=== PATIENT | female | born 1980 | race Caucasian/White ===

== ENCOUNTER 2021-11-26 09:53 | Emergency (ER) | payer SELFPAY ==
[2021-11-26 10:14] VITALS: BP 197/105; PULSE 78; RESP 16; TEMP 36.7; O2SAT 95; BMI 26.6
--- NOTE | 2021-11-26 10:29 | CT_ITS ---
WS: [id number] CT HEAD TECHNIQUE: Noncontrast CT of the head obtained from the skullbase to the vertex. CLINICAL INFORMATION: headache on left periorbital region COMPARISON: 2012 DLP: 972.[address] scans at [facility] use at least one of these dose optimization techniques: automated e xposure control; mA and/or kV adjustment per patient size (includes targeted exams where dose is matc hed to clinical indication); or iterative reconstruction. FINDINGS: No evidence of intracranial hemorrhage or mass effect. Ventricular system and basal cisterns are fisher nt. Mild small vessel changes with moderate parenchymal volume loss. Chronic lacunar infarcts in the RIGHT greater than LEFT caudate and LEFT greater than RIGHT basal ganglia. Chronic lacunar infarcts i n the LEFT thalamus. Embolization coils supraclinoid LEFT ICA from previous.. No extra-axial fluid co llections. No evidence of mass or mass effect. Paranasal sinuses and mastoid air cells are well aerated. .Normal visualized soft tissues. CT/CT head wo con* [id number] IMPRESSION: 1. No evidence of intracranial hemorrhage or mass effect. 2. Mild small vessel changes. Moderate parenchymal volume loss. 3. Multiple chronic lacunar infarcts in the caudate, basal ganglia, thalamus. 4. Embolization coils LEFT supraclinoid ICA new from previous. 5. No acute intracranial findings.
--- NOTE | 2021-11-26 10:30 | W.ED.HA ---
Documented by User: TIERA Alvarado 11/26/21 14:15 HPI - Headache General: Chief Complaint: Headache Stated Complaint: head pain Time Seen by Provider: 11/26/21 09:56 History of Present Illness: Patient is a 41-year-old female comes to the ED with headache. History of brain aneurysm, but is not on any current blood thinners. Patient has had this headache for 5 days. Pain is localized to left side of face just lateral to left eye. She says it is a sharp pain and touching her left side of face near her eye causes pain. Denies any other neurological symptoms such as vision changes, numbness tingling or weakness to 1 side of her face or body. She does not have a history of migraines. [id number] medications have not helped headache. She currently rates the headache a 9 out of 10. Associated symptoms: Deny chest pain, fever(s), nausea, rash or vomiting Review of Systems Const: Denies: fever(s), chills or fatigue Eyes: Denies: change in vision or eye discomfort ENMT: Denies: throat pain, odynophagia, nasal discharge or nasal congestion Card: Denies: chest pain, palpitations, edema, swelling of feet/ankles, dyspnea on exertion or orthopnea Resp: Denies: dyspnea, productive cough or non-productive cough GI: Denies: abdominal pain, nausea, vomiting, diarrhea, constipation or hematochezia : Denies: flank pain, dysuria or hematuria Musc: Denies: neck pain, back pain or extremity swelling Skin/Breast: Denies: rash or new lesions Neuro: Reports: headache(s); Denies: numbness in extremities or weakness in extremities PFS ED PFSH: Medical History Brain aneurysm No pertinent family history Female Reproductive History: Date of last menstrual period: 10/30/21 Physical Exam Const: COMMON NORMALS: patient oriented x3, healthy appearing and alert GENERAL APPEARANCE: cooperative and comfortable HENMT: COMMON NORMALS: normocephalic HEAD & SCALP: normocephalic FACE & SINUS: Facial tenderness on exam of face and sinuses on the left periorbital (Just lateral to left periorbital) MOUTH: Normal oral and palatal mucosa present THROAT: posterior oropharynx normal and uvula midline Eye: COMMON NORMALS: Equal, round and reactive pupils present, EOMs intact bilaterally and conjunctivae normal CONJUNCTIVA: Yes conjunctivae normal PUPIL: Yes Equal, round and reactive pupils present Neck/C-Spine: COMMON NORMALS: supple GENERAL: Yes normal visual inspection Resp: COMMON NORMALS: normal respiratory effort, No retractions, No use of accessory muscles and clear to auscultation bilaterally AUSCULTATION: clear to auscultation bilaterally Cardio: COMMON NORMALS: regular rate, regular rhythm, S1 normal heart sound present, S2 normal heart sound present, No gallops present (Cardio), No clicks present (Cardio), No murmurs present (Cardio) and Peripheral pulses 2+ throughout RATE: regular rate RHYTHM: regular rhythm HEART SOUNDS: S1 normal heart sound present and S2 normal heart sound present PERIPHERAL PULSES: Peripheral pulses 2+ throughout GI: COMMON NORMALS: Normal to inspection, nondistended, normoactive bowel sounds present, Soft to palpation, non-tender and no masses PALPATION: Yes Soft to palpation : COMMON NORMALS: Yes no CVA tenderness BLADDER/KIDNEY EXAM: Yes no CVA tenderness Back/Pelvis: COMMON NORMALS: no CVA tenderness Extremity: COMMON NORMALS: normal to inspection and no pedal edema Neuro: COMMON NORMALS: patient oriented x3, CN's II-XII intact bilaterally, moves all extremities, no focal motor deficits and no sensory deficits noted SENSORIUM/ORIENTATION: Yes alert SPEECH: speech normal SENSORY EXAM: Yes extremities (intact) MOTOR EXAM: 5/5 motor strength present throughout OTHER: Patient has tenderness in the maxillary region of left trigeminal nerve. Skin: GENERAL SKIN EXAM: dry skin Course Vital Signs: Vital signs: Vital Signs Temperature 98.1 F 11/26/21 10:14 Pulse Rate 78 11/26/21 10:14 Respiratory Rate 16 11/26/21 10:14 Blood Pressure 197/105 11/26/21 10:14 Pulse Oximetry 95 11/26/21 10:14 [facility] - Headache Medical Decision Making Patient is a 41-year-old female comes to the ED with a headache. She describes the headache as a localized pain on the left side of her face just lateral to her left eye. It is tender to the touch. Symptoms started approximately 5 days ago. Denies any neuro symptoms. Vitals are stable. Neuro exam is benign. She does have tenderness over maxillary branch of trigeminal nerve on the left side. Rest of exam is benign. CT head showed no acute findings. Patient given Toradol and Decadron while here in the ED to help with headache symptoms. Based off exam findings and clinical history patient likely has trigeminal neuralgia and was discharged home with a prescription for carbamazepine. I placed an order with case management for patient be referred to neurologist Dr. Ramirez for follow-up. Patient understood and agreed with plan. Lab Data Radiology Impressions Head CT 11/26/21 10:29 IMPRESSION: 1. No evidence of intracranial hemorrhage or mass effect. 2. Mild small vessel changes. Moderate parenchymal volume loss. 3. Multiple chronic lacunar infarcts in the caudate, basal ganglia, thalamus. 4. Embolization coils LEFT supraclinoid ICA new from previous. 5. No acute intracranial findings. Discharge Plan Discharge Patient Disposition: Home Clinical Impression: Trigeminal neuralgia of left side of face Condition: Stable Prescriptions: New carbamazepine 100 mg capsule, ER multiphase 12 hr 200 mg PO BID Qty: 60 0RF Rx Instructions: You can increase dose by 100mg q other day prn pain. Do not exceed 1200mg daily. prednisone 20 mg tablet 20 mg PO BID 3 Days Qty: 6 0RF No Action atorvastatin 20 mg tablet 20 mg PO QAM Tylenol Ex Str Rapid Release 500 mg Tablet 1,000 mg PO Q6H PRN (Reason: Pain) citalopram 20 mg tablet 20 mg PO QAM metoprolol tartrate 50 mg tablet 50 mg PO BID hydrochlorothiazide 12.5 mg tablet 12.5 mg PO QAM Discharge Orders: Discharge ED (Routine); Ordered 11/26/21 Ordered By: eRynaldo Zamorano Discharge Diet: Regular Discharge Activity: Increase activity as tolerated Patient Instructions: Trigeminal Neuralgia (ED) Activity Restrictions/Additional Instructions: Follow-up with medical provider as directed. health and safety manager regarding in the next several days set up an appointment with Dr. Ramirez neurologist for further evaluation of trigeminal neuralgia. You can start taking the first dose of prednisone tomorrow, but start taking carbamazepine today. You can increase the carbamazepine dose by 100 mg every other day as needed for pain. Do not exceed 1200 mg of carbamazepine daily. take medications as prescribed. Return to the ER or your medical provider if condition worsens. Please read and understand discharge instructions. Thank you for choosing [facility] for your healthcare needs today. Please realize this is an emergency room and that we are providing you with a medical screening exam and this may not be complete and all inclusive of all the testing and or work up that you may need to determine your ailment or severity of your illness. It is very important that you follow up as instructed or that you return to the Emergency Department should you have concerns or if your condition changes or worsens in any way. Coding Level of Care Code ED Assistant Professor Of History for Chg Fwd Exam Comprehensive Documented by User: Dillan Schafer DO 11/27/21 05:58 HPI - Headache General: Chief Complaint: Headache Stated Complaint: head pain Time Seen by Provider: 11/26/21 09:56 PFS ED PFSH: Medical History Brain aneurysm No pertinent family history Course Vital Signs: Vital signs: Vital Signs Temperature 98.1 F 11/26/21 10:14 Pulse Rate 78 11/26/21 10:14 Respiratory Rate 16 11/26/21 10:14 Blood Pressure 197/105 11/26/21 10:14 Pulse Oximetry 95 11/26/21 10:14 MDM - Headache Medical Decision Making Patient is a 41-year-old female comes to the ED with a headache. She describes the headache as a localized pain on the left side of her face just lateral to her left eye. It is tender to the touch. Symptoms started approximately 5 days ago. Denies any neuro symptoms. Vitals are stable. Neuro exam is benign. She does have tenderness over maxillary branch of trigeminal nerve on the left side. Rest of exam is benign. CT head showed no acute findings. Patient given Toradol and Decadron while here in the ED to help with headache symptoms. Based off exam findings and clinical history patient likely has trigeminal neuralgia and was discharged home with a prescription for carbamazepine. I placed an order with case management for patient be referred to neurologist Dr. Ramirez for follow-up. Patient understood and agreed with plan. Chart reviewed and patient discussed with midlevel. Agree with assessment and plan. Lab Data Radiology Impressions Head CT 11/26/21 10:29 IMPRESSION: 1. No evidence of intracranial hemorrhage or mass effect. 2. Mild small vessel changes. Moderate parenchymal volume loss. 3. Multiple chronic lacunar infarcts in the caudate, basal ganglia, thalamus. 4. Embolization coils LEFT supraclinoid ICA new from previous. 5. No acute intracranial findings. Discharge Plan Discharge Patient Disposition: Home Clinical Impression: Trigeminal neuralgia of left side of face Condition: Stable Prescriptions: New carbamazepine 100 mg capsule, ER multiphase 12 hr 200 mg PO BID Qty: 60 0RF Rx Instructions: You can increase dose by 100mg q other day prn pain. Do not exceed 1200mg daily. prednisone 20 mg tablet 20 mg PO BID 3 Days Qty: 6 0RF No Action atorvastatin 20 mg tablet 20 mg PO QAM Tylenol Ex Str Rapid Release 500 mg Tablet 1,000 mg PO Q6H PRN (Reason: Pain) citalopram 20 mg tablet 20 mg PO QAM metoprolol tartrate 50 mg tablet 50 mg PO BID hydrochlorothiazide 12.5 mg tablet 12.5 mg PO QAM Discharge Orders: Discharge ED (Routine); Ordered 11/26/21 Ordered By: Reynaldo Zamorano Discharge Diet: Regular Discharge Activity: Increase activity as tolerated Patient Instructions: Trigeminal Neuralgia (ED) Activity Restrictions/Additional Instructions: Follow-up with medical provider as directed. health and safety manager regarding in the next several days set up an appointment with Dr. Ramirez neurologist for further evaluation of trigeminal neuralgia. You can start taking the first dose of prednisone tomorrow, but start taking carbamazepine today. You can increase the carbamazepine dose by 100 mg every other day as needed for pain. Do not exceed 1200 mg of carbamazepine daily. take medications as prescribed. Return to the ER or your medical provider if condition worsens. Please read and understand discharge instructions. Thank you for choosing [facility] for your healthcare needs today. Please realize this is an emergency room and that we are providing you with a medical screening exam and this may not be complete and all inclusive of all the testing and or work up that you may need to determine your ailment or severity of your illness. It is very important that you follow up as instructed or that you return to the Emergency Department should you have concerns or if your condition changes or worsens in any way. Coding Level of Care Code ED Assistant Professor Of History for Mehdi Fwd Exam Comprehensive
[2021-11-26] MEDS: dexamethasone 10 mg/mL INJ IM (10:34)
[2021-11-26] MEDS: ketorolac 60 mg/2 mL INJ IM (10:35)
--- NOTE | 2021-11-26 11:19 | PC.PHAR ---
PT STATES SHE TAKES CARE OF HER OWN MEDICATIONS-PT STATES SHE IS SUPPOSE TO BE TAKING EUTHYROX 150MCG DAILY STATES SHE HASNT TAKEN SINCE JULY STATES SHE CANT AFFORD THE MEDICATION EXT MED HISTORY SHOWS LAST FILLED 07/14/21 30D/S-PT STATES SHE JUST RAN OUT OF HER LIPITOR 20MG EXT MED HISTORY SHOWS LAST FILLED 10/01/21 30D/S
--- NOTE | 2021-11-26 12:13 | DCPLANNER ---
Addendum entered by Vanesa Davis 01/09/22 12:44: it risk and assurance manager received the following message from the neurology clinic regarding follow up appointment: She called back and said that she does not have a way to pay for the appointment at this time. I provided information about the financial assistance application and counselors. She said that she does not know her schedule and will call back to make an appointment. Addendum entered by Vanesa Davis 01/09/22 09:08: it risk and assurance manager received the following message from the neurology clinic regarding follow up appointment: I attempted to reach her again at [phone]. The mailbox is full and not accepting messages at this time. On 11/28/21 @ 14:53 Tiffanie Ghotra Wrote To Dr. Ramirez Clinical Logged On 11/26/21 @ 14:47 Tiffanie Ghotra Wrote To Dr. Ramirez Clinical I attempted to reach her at [phone] but she did not answer and the mailbox is full. We have a couple of openings tomorrow if anyone can get ahold of her. Original Note: it risk and assurance manager had message to schedule a follow up appointment for patient with neurology. it risk and assurance manager sent patients information to the front office staff at neurology. Patients information will be printed and reviewed. Clinic will call patient with appointment information.
== END 2021-11-26 11:48 | disposition home or self-care (01) ==
PROVIDERS: Emergency Provider Physician Assistant
DX: G50.0 Trigeminal neuralgia (principal)
CPT/HCPCS: 70450; 96372; 99284; J1100; J1885